=== PATIENT | male | born 2005 | race African-American/Black ===

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

== ENCOUNTER 2025-07-06 15:56 | Emergency (ER) | payer SELFPAY | END 2025-07-06 17:45 | disposition home or self-care (01) | LOC: CSHERS 15:56 | DX: B34.9 Viral infection, unspecified (principal); F17.210 Nicotine dependence, cigarettes, uncomplicated | CPT/HCPCS: 87428; 99283 ==